=== PATIENT | female | born 1985 | race Caucasian/White ===

== ENCOUNTER 2017-01-18 15:33 | Emergency (ER) | payer OTHER ==
[~2017-01-18] VITALS: Ht 172.7 cm; Wt 60.0 kg
[2017-01-18 15:36] VITALS: BP 118/72; PULSE 92; RESP 16; TEMP 98.7; O2SAT 99
[2017-01-18] MEDS ORDERED: TRAZ50TA12 PO (15:44)
[2017-01-18] MEDS ORDERED: AMBI10TA PO (15:44)
[2017-01-18] MEDS ORDERED: CLON1TAB PO (15:44)
[2017-01-18] MEDS ORDERED: PRIS100T PO (15:44)
[2017-01-18] MEDS ORDERED: METHY5 PO (15:49)
[2017-01-18] MEDS ORDERED: ALBU6.7H INH (15:50)
[2017-01-18] MEDS ORDERED: MONT10TA2 PO (15:51)
[2017-01-18] MEDS ORDERED: ADVA250A INH (15:51)
--- NOTE | 2017-01-18 16:21 | PD ---
HPI Chief Complaint: Depression Time Seen by Provider: 16:20 Travel History International Travel<30 days: No Contact w/Intl Traveler<30days: No Traveled to known affect area: No History of Present Illness HPI 31 YO F with PMH of asthma and major depressive disorder presents to to the ED for voluntary psychiatric evaluation. Patient states that she feels anxious, depressed, unfocused. She endorses difficulty sleeping. She states that these symptoms are interfering with her work and romantic relationship. She endorses compliance with her psychiatric medications. She states that she has been experiencing intermittent chest tightness that resolves spontaneously. She denies associated diaphoresis, palpitations, N/V, SOB. She states that she has been missing doses of her asthma medications 2/2 her depression. PFSH Past Medical History Asthma: Yes Anxiety: Yes Depression: Yes Diminished Hearing: No Respiratory: Yes (ASTHMA ) Tetanus Vaccination: Unknown Influenza Vaccination: No ?: Not LMP: no period - on Kendy Past Surgical History Other Surgery: Yes Social History Alcohol Use: Yes (SOCIAL) Tobacco Use: No Substance Use: No Allergies-Medications (Allergen,Severity, Reaction): Coded Allergies: No Known Allergies (Unverified , 01/18/17) Reported Meds & Prescriptions Reported Meds & Active Scripts Active Reported Singulair (Montelukast Sodium) 10 Mg Tab 10 Mg PO HS Advair Diskus Inh (Fluticasone-Salmeterol Inh) 250-50 Mcg/Blist Aer 1 Puff INH BID Rinse mouth after use. Proventil Hfa 6.7 GM Inh (Albuterol Sulfate) 90 Mcg/Act Aer 2 Puff INH Q4-6H PRN Ritalin IR (Methylphenidate HCl) 5 Mg Tab 5 Mg PO DAILY Trazodone (Trazodone HCl) 50 Mg Tab 50 Mg PO HS Ambien (Zolpidem Tartrate) 10 Mg Tab 10 Mg PO HS PRN Clonazepam 1 Mg Tab 1 Mg PO BID Pristiq 24 HR (Desvenlafaxine ER 24 HR) 100 Mg Tab 100 Mg PO DAILY Review of Systems Except as stated in HPI: all other systems reviewed are Neg Physical Exam Narrative GENERAL: Well-nourished, well-developed white female in no acute distress. PSYCHIATRIC: No delusional thought processes. No hallucinations. Anxious. SKIN: Focused skin assessment warm/dry. HEAD: Normocephalic. EYES: No scleral icterus. No injection or drainage. NECK: Supple, trachea midline. No JVD or lymphadenopathy. CARDIOVASCULAR: Regular rate and rhythm without murmurs, gallops, or rubs. RESPIRATORY: Breath sounds clear and equal bilaterally. No accessory muscle use. GASTROINTESTINAL: Abdomen soft, non-tender, nondistended. Active bowel sounds. MUSCULOSKELETAL: No cyanosis, or edema. Ambulatory. Moves extremities spontaneously. BACK: Nontender without obvious deformity. No CVA tenderness. Data Data Last Documented VS Vital Signs Date Time Temp Pulse Resp B/P Pulse Ox O2 Delivery O2 Flow Rate FiO2 01/18/17 16:09 18 01/18/17 15:36 98.7 92 118/72 99 Orders Complete Blood Count With Diff (01/18/17 16:19) Comprehensive Metabolic Panel (01/18/17 16:19) Urinalysis - C+S If Indicated (01/18/17 16:19) Ed Urine Pregnancytest Poc (01/18/17 16:19) Psych Screen (01/18/17 16:19) Drug Screen, Random Urine (01/18/17 16:19) Alcohol (Ethanol) (01/18/17 16:19) Electrocardiogram (01/18/17 16:44) Ckmb (Isoenzyme) Profile (01/18/17 16:44) Troponin I (01/18/17 16:44) Chest, Single Ap (01/18/17 16:44) Diet Regular Basic (01/18/17 Dinner) Labs Laboratory Tests Test 01/18/17 01/18/17 16:30 16:45 White Blood Count 4.9 TH/MM3 Red Blood Count 4.09 MIL/MM3 Hemoglobin 12.3 GM/DL Hematocrit 35.4 % Mean Corpuscular Volume 86.6 FL Mean Corpuscular Hemoglobin 30.1 PG Mean Corpuscular Hemoglobin 34.7 % Concent Red Cell Distribution Width 12.1 % Platelet Count 222 TH/MM3 Mean Platelet Volume 8.0 FL Neutrophils (%) (Auto) 43.6 % Lymphocytes (%) (Auto) 44.4 % Monocytes (%) (Auto) 10.3 % Eosinophils (%) (Auto) 1.1 % Basophils (%) (Auto) 0.6 % Neutrophils # (Auto) 2.1 TH/MM3 Lymphocytes # (Auto) 2.2 TH/MM3 Monocytes # (Auto) 0.5 TH/MM3 Eosinophils # (Auto) 0.1 TH/MM3 Basophils # (Auto) 0.0 TH/MM3 CBC Comment DIFF FINAL Differential Comment Sodium Level 139 MEQ/L Potassium Level 3.8 MEQ/L Chloride Level 106 MEQ/L Carbon Dioxide Level 26.2 MEQ/L Anion Gap 7 MEQ/L Blood Urea Nitrogen 8 MG/DL Creatinine 0.83 MG/DL Estimat Glomerular Filtration 81 ML/MIN Rate Random Glucose 77 MG/DL Calcium Level 8.5 MG/DL Total Bilirubin 0.3 MG/DL Aspartate Amino Transf 12 U/L (AST/SGOT) Alanine Aminotransferase 15 U/L (ALT/SGPT) Alkaline Phosphatase 83 U/L Total Creatine Kinase 65 U/L Troponin I LESS THAN 0.02 NG/ML Total Protein 7.3 GM/DL Albumin 3.9 GM/DL Ethyl Alcohol Level LESS THAN 3 MG/DL Urine Color YELLOW Urine Turbidity CLEAR Urine pH 7.5 Urine Specific [place] 1.019 Urine Protein TRACE mg/dL Urine Glucose (UA) NEG mg/dL Urine Ketones NEG mg/dL Urine Occult Blood NEG Urine Nitrite NEG Urine Bilirubin NEG Urine Urobilinogen LESS THAN 2.0 MG/DL Urine Leukocyte Esterase NEG Urine WBC 1 /hpf Urine Squamous Epithelial 2 /hpf Cells Urine Mucus FEW /lpf Microscopic Urinalysis Comment CULT NOT INDICATED Urine Opiates Screen NEG Urine Barbiturates Screen NEG Urine Amphetamines Screen NEG Urine Benzodiazepines Screen NEG Urine Cocaine Screen NEG Urine Cannabinoids Screen NEG MDM Medical Decision Making Medical Screen Exam Complete: Yes Emergency Medical Condition: Yes Differential Diagnosis Anxiety versus asthma exacerbation versus atypical chest pain versusAdjustment disorder versus anxiety versus bipolar versus depression versus dementia versus electrolyte disorder versus malingering versus mood disorder versus ODD versus psychosis versus PTSD versus schizophrenia versus schizoaffective disorder versus substance-induced mood disorder versus other Narrative Course 31 YO F with PMH of asthma and major depressive disorder presents to to the ED for voluntary psychiatric evaluation. Patient states that she feels anxious, depressed, unfocused. She endorses difficulty sleeping. She endorses compliance with her psychiatric medications. She states that she has been experiencing intermittent chest tightness that resolves spontaneously. She states that she has been missing doses of her asthma medications 2/2 her depression. Vitals reviewed. Physical exam reveals a nontoxic-appearing white female in no acute distress. No appreciable N/R/G. Chest CTA B. Abdomen soft, nontender. No CVA tenderness. Basic lab work and cardiac workup ordered. Disposition per Dr. Patel. Courtney Parson Jan 18, 2017 16:21
[2017-01-18 16:47] LABS: AUTOMATED NEUTROPHIL # 2.1 TH/MM3 (1.8-7.7); BASOPHIL % 0.6 % (0.0-2.0); EOSINOPHIL # 0.1 TH/MM3 (0-0.4); EOSINOPHIL % 1.1 % (0.0-4.0); HEMATOCRIT 35.4 % (35.0-46.0); HEMO FLAGS DIFF FINAL; LYMPH % 44.4 % (9.0-44.0); LYMPHOCYTE # 2.2 TH/MM3 (1.0-4.8); MEAN CELL VOLUME 86.6 FL (80.0-100.0); MEAN CORPUSCULAR HEMOGLOBIN 30.1 PG (27.0-34.0); MEAN CORPUSCULAR HGB CONC 34.7 % (32.0-36.0); MONO % 10.3 % (0.0-8.0); NEUT % 43.6 % (16.0-70.0); PLATELET COUNT 222 TH/MM3 (150-450); RED BLOOD COUNT 4.09 MIL/MM3 (4.00-5.30); RED CELL DISTRIBUTION WIDTH 12.1 % (11.6-17.2); WHITE BLOOD COUNT 4.9 TH/MM3 (4.0-11.0)
[2017-01-18 17:04] LABS: ALT (GPT) 15 U/L (10-53); ANION GAP 7 MEQ/L (5-15); AST (GOT) 12 U/L (15-37); BICARBONATE 26.2 MEQ/L (21.0-32.0); BLOOD UREA NITROGEN 8 MG/DL (7-18); CHLORIDE 106 MEQ/L (98-107); GLOMERULAR FILTRATION RATE 81 ML/MIN (>89); POTASSIUM 3.8 MEQ/L (3.5-5.1); SODIUM (NA) 139 MEQ/L (136-145)
[2017-01-18 17:07] LABS: ALKALINE PHOSPHATASE 83 U/L (45-117); TOTAL BILIRUBIN ADULT 0.3 MG/DL (0.2-1.0)
--- NOTE | 2017-01-18 17:27 | RADRPT ---
EXAM DATE/TIME: 01/18/2017 17:11 [facility] COMPARISON: No previous studies available for comparison. INDICATIONS : Chest tightness and pressure. MEDICAL HISTORY : Asthma. Anxiety. SURGICAL HISTORY : None. ENCOUNTER: Initial ACUITY: 2 weeks PAIN SCORE: 0/10 LOCATION: Bilateral chest FINDINGS: The heart is normal in size. The lungs are clear. The bony structures are grossly intact. The examination demonstrates a metallic ring which presumably is outside the patient which projects o shanique the upper chest. This should be correlated with clinical examination. CONCLUSION: 1. No acute cardiopulmonary findings identified. Jorge Truong MD on January 18, 2017 at 17:20 Board Certified Radiologist. This report was verified electronically.
[2017-01-18 17:49] LABS: BLOOD, URINE NEG (NEG); COMMENT (UR) CULT NOT INDICATED; CULTURE IF INDICATED CULT NOT INDICATED; GLUCOSE,URINE NEG (NEG); KETONE, URINE NEG (NEG); MUCUS URINE FEW /lpf (OCC); NITRITE,URINE NEG (NEG); PH, URINE 7.5 (5.0-8.5); SQUAMOUS EPITHELIAL CELL URINE 2 /hpf (0-5); URINE COLOR YELLOW (YELLW/STRAW)
[2017-01-18 17:59] LABS: AMPHETAMINE, URINE NEG (NEG); BARBITURATES, URINE NEG (NEG); COCAINE, URINE NEG (NEG)
[2017-01-18 19:44] LABS: CREATINE KINASE 65 U/L (26-192)
--- NOTE | 2017-01-18 20:16 | PD ---
Physical Exam Narrative Patient was seen by my gallery assistant and signed out to me. Data Data Last Documented VS Vital Signs Date Time Temp Pulse Resp B/P Pulse Ox O2 Delivery O2 Flow Rate FiO2 01/18/17 16:09 18 01/18/17 15:36 98.7 92 118/72 99 Orders Complete Blood Count With Diff (01/18/17 16:19) Comprehensive Metabolic Panel (01/18/17 16:19) Urinalysis - C+S If Indicated (01/18/17 16:19) Ed Urine Pregnancytest Poc (01/18/17 16:19) Psych Screen (01/18/17 16:19) Drug Screen, Random Urine (01/18/17 16:19) Alcohol (Ethanol) (01/18/17 16:19) Electrocardiogram (01/18/17 16:44) Ckmb (Isoenzyme) Profile (01/18/17 16:44) Troponin I (01/18/17 16:44) Chest, Single Ap (01/18/17 16:44) Diet Regular Basic (01/18/17 Dinner) Labs Laboratory Tests Test 01/18/17 01/18/17 16:30 16:45 White Blood Count 4.9 TH/MM3 Red Blood Count 4.09 MIL/MM3 Hemoglobin 12.3 GM/DL Hematocrit 35.4 % Mean Corpuscular Volume 86.6 FL Mean Corpuscular Hemoglobin 30.1 PG Mean Corpuscular Hemoglobin 34.7 % Concent Red Cell Distribution Width 12.1 % Platelet Count 222 TH/MM3 Mean Platelet Volume 8.0 FL Neutrophils (%) (Auto) 43.6 % Lymphocytes (%) (Auto) 44.4 % Monocytes (%) (Auto) 10.3 % Eosinophils (%) (Auto) 1.1 % Basophils (%) (Auto) 0.6 % Neutrophils # (Auto) 2.1 TH/MM3 Lymphocytes # (Auto) 2.2 TH/MM3 Monocytes # (Auto) 0.5 TH/MM3 Eosinophils # (Auto) 0.1 TH/MM3 Basophils # (Auto) 0.0 TH/MM3 CBC Comment DIFF FINAL Differential Comment Sodium Level 139 MEQ/L Potassium Level 3.8 MEQ/L Chloride Level 106 MEQ/L Carbon Dioxide Level 26.2 MEQ/L Anion Gap 7 MEQ/L Blood Urea Nitrogen 8 MG/DL Creatinine 0.83 MG/DL Estimat Glomerular Filtration 81 ML/MIN Rate Random Glucose 77 MG/DL Calcium Level 8.5 MG/DL Total Bilirubin 0.3 MG/DL Aspartate Amino Transf 12 U/L (AST/SGOT) Alanine Aminotransferase 15 U/L (ALT/SGPT) Alkaline Phosphatase 83 U/L Total Creatine Kinase 65 U/L Troponin I LESS THAN 0.02 NG/ML Total Protein 7.3 GM/DL Albumin 3.9 GM/DL Ethyl Alcohol Level LESS THAN 3 MG/DL Urine Color YELLOW Urine Turbidity CLEAR Urine pH 7.5 Urine Specific [place] 1.019 Urine Protein TRACE mg/dL Urine Glucose (UA) NEG mg/dL Urine Ketones NEG mg/dL Urine Occult Blood NEG Urine Nitrite NEG Urine Bilirubin NEG Urine Urobilinogen LESS THAN 2.0 MG/DL Urine Leukocyte Esterase NEG Urine WBC 1 /hpf Urine Squamous Epithelial 2 /hpf Cells Urine Mucus FEW /lpf Microscopic Urinalysis Comment CULT NOT INDICATED Urine Opiates Screen NEG Urine Barbiturates Screen NEG Urine Amphetamines Screen NEG Urine Benzodiazepines Screen NEG Urine Cocaine Screen NEG Urine Cannabinoids Screen NEG MDM Supervised Visit with DARIAN: Yes Interpretation(s) Last Impressions Chest X-Ray 01/18/17 1644 Signed Impressions: Service Date/Time: Wednesday, January 18, 2017 17:11 - CONCLUSION: 1. No acute cardiopulmonary findings identified. Jorge Truong MD 2014 PM. CBC within normal limit. CMP within normal limit. Cardiac enzymes are normal. UA negative. Urine drug screen negative. Alcohol negative. Narrative Course 2016 p.m. Patient is medically cleared for psychiatric evaluation and disposition. 2051 PM. Patient was seen by psychiatric team and cleared for discharge. Diagnosis Primary Impression: Depression Qualified Code: F32.9 - Depression, unspecified depression type Patient Instructions: General Instructions Additional Instruction: Advised patient to follow-up with local physician. Return as needed. Med/Other Pt SpecificInfo: No Change to Meds Disposition: 01 DISCHARGE HOME Condition: Stable Miek Patel MD Jan 18, 2017 20:16
--- NOTE | 2017-01-19 13:29 | EKG ---
Date Performed: 01/18/2017 Time Performed: 17:21:18 PTAGE: 31 years EKG: Sinus rhythm POSSIBLE RIGHT VENTRICULAR CONDUCTION DELAY BORDERLINE ECG NO PREVIOUS TRACING DOCTOR: Aiden Garza Interpretating Date/Time 01/19/2017 13:26:59
== END 2017-01-18 21:10 | disposition home or self-care (01) ==
LOC: NEPD 15:33
DX: F32.9 Major depressive disorder, single episode, unspecified (principal); J45.909 Unspecified asthma, uncomplicated; R94.31 Abnormal electrocardiogram [ECG] [EKG]
CPT/HCPCS: 71010; 80053; 80307; 81001; 82550; 84484; 84703; 85025; 93005; 99285